=== PATIENT | female | born 1995 | race Caucasian/White ===

== ENCOUNTER 2023-10-18 15:44 | Emergency (ER) | payer OTHER, MEDICAID, SELFPAY ==
[2023-10-18 15:51] VITALS: BP 147/77; PULSE 101; RESP 18; TEMP 36.6; O2SAT 100
--- NOTE | 2023-10-18 17:40 | ED.EAR ---
HPI - Ear Problem General Chief complaint: Ear Stated complaint: ear pain and requesting covid test Time Seen by Provider: 10/18/23 16:57 Source: patient Mode of arrival: ambulatory Limitations: no limitations History of Present Illness HPI Narrative: Patient is a 28 y/o female who presents to the ED with report of L ear pain and drainage. Patient reports having pain in her left ear since yesterday. She noted having worsening pain and drainage from her left ear today. She went to [facility] and was told she had a viral infection. She took a COVID test at home which was positive. Patient wanting to be evaluated for ear. Denies fevers. Denies SOB/CP. Took Tylenol prior to arrival. Related Data Allergies Allergy/AdvReac Type Severity Reaction Status Date / Time No Known Allergies Allergy Verified 10/18/23 16:19 Review of Systems Review of Systems: CONSTITUTIONAL: Denies fever, chills, or sweats. ENT: See HPI. CARDIOVASCULAR: Denies chest pain RESPIRATORY: Denies cough or dyspnea. All systems reviewed & are unremarkable except as noted in HPI and below Exam Narrative: GENERAL: Well appearing, well-nourished, non-toxic, in no acute distress. ENT: Bilateral EAC mildly swollen and erythematous, worse on L. No drainage noted. Mild tenderness with palpation of left ear pinna, palpation of L tragus. TMs do not appear erythematous or bulging bilaterally. No tenderness with palpation of R ear. NECK: Supple. No adenopathy, no masses. RESPIRATORY: Airway patent, respirations nonlabored. Clear to auscultation bilaterally, no rales, rhonchi, wheezing. CARDIOVASCULAR: Regular rate and rhythm without murmurs, rubs, or gallops. Radial pulses 2+ and equal bilaterally. MUSCULOSKELETAL: Moves all extremities. No gross deformities. SKIN: Warm, dry, normal color. No rashes. NEURO: A&O X3. Speech clear. Cranial nerves II-XII grossly intact. Steady gait. No ataxic movements. PSYCHIATRIC: Appropriate mood and affect. Normal interaction. Course Vital Signs Vital signs: Vital Signs Temperature 97.9 F 10/18/23 15:51 Pulse Rate 101 H 10/18/23 15:51 Respiratory Rate 18 10/18/23 15:51 Blood Pressure 147/77 H 10/18/23 15:51 Pulse Oximetry 100 10/18/23 15:51 Oxygen Delivery Room Air 10/18/23 15:51 Temperature 97.9 F 10/18/23 15:51 Pulse Rate 101 H 10/18/23 15:51 Respiratory Rate 18 10/18/23 15:51 Blood Pressure 147/77 H 10/18/23 15:51 Pulse Oximetry 100 10/18/23 15:51 Oxygen Delivery Room Air 10/18/23 15:51 Medical Decision Making MDM Narrative Medical decision making narrative: Patient presented to ED with 2 day hx of L ear pain. Currently +COVID. VSS upon arrival. Exam concerning for potential left otitis externa. I did discuss w/ patient bacterial process vs viral syndrome causing ear drainage/congestion/pain. Will treat for potential bacterial process with ofloxacin ear drops, advised to utilize OTC decongestants/AHs. Tylenol/ibuprofen as needed for pain. Given return precautions. Discharged in stable condition. Medical Records Medical records reviewed: Yes I reviewed the external patient's medical records. Vital Signs Vital Signs: Vital Signs Temperature 97.9 F 10/18/23 15:51 Pulse Rate 101 H 10/18/23 15:51 Respiratory Rate 18 10/18/23 15:51 Blood Pressure 147/77 H 10/18/23 15:51 Pulse Oximetry 100 10/18/23 15:51 Oxygen Delivery Room Air 10/18/23 15:51 Temperature 97.9 F 10/18/23 15:51 Pulse Rate 101 H 10/18/23 15:51 Respiratory Rate 18 10/18/23 15:51 Blood Pressure 147/77 H 10/18/23 15:51 Pulse Oximetry 100 10/18/23 15:51 Oxygen Delivery Room Air 10/18/23 15:51 Discharge Plan Discharge Clinical Impression: COVID-19 Otitis externa Qualifiers: Otitis externa type: unspecified type Chronicity: acute Laterality: left Qualified Code(s): H60.502 - Unspecified acute noninfective otitis externa, left ear Patient Disposition: Home, Self-
== END 2023-10-18 18:16 | disposition home or self-care (01) ==
LOC: ANHED 17:55
PROVIDERS: Emergency Provider Physician Assistant; PCP Physician Assistant
DX: U07.1 COVID-19 (principal); H60.502 Unspecified acute noninfective otitis externa, left ear
CPT/HCPCS: 99283

== ENCOUNTER 2023-12-27 10:03 | Emergency (ER) | payer OTHER, SELFPAY ==
[2023-12-27 10:11] VITALS: BP 133/81; PULSE 100; RESP 16; TEMP 36.6; O2SAT 99
--- NOTE | 2023-12-27 10:18 | ED.URI ---
HPI - URI/Sore Throat General Chief Complaint: Upper Respiratory Infection Stated Complaint: flu like s/s Time Seen by Provider: 12/27/23 11:47 Source: patient Mode of arrival: ambulatory Limitations: no limitations History of Present Illness HPI Narrative: This is a 28-year-old female that presents to the emergency department for cold symptoms ongoing over the last 2 days. Reports chills, congestion, cough. Denies fever or shortness of breath. Related Data Allergies Allergy/AdvReac Type Severity Reaction Status Date / Time No Known Allergies Allergy Verified 12/27/23 10:14 Review of Systems Review of Systems: CONSTITUTIONAL: Denies fever ENT: Reports rhinorrhea, congestion. Denies sore throat RESPIRATORY: Reports cough. Denies dyspnea. All systems reviewed & are unremarkable except as noted in HPI and below PMFSH Past Medical History Medical History (Updated 12/27/23 @ 11:49 by Hawa Morales PA-C) No active medical problems Social History Social History (Updated 12/27/23 @ 10:19 by Hawa Morales PA-C) Smoking status: Never smoker Exam Narrative: GENERAL: Well-appearing, well-nourished, and in no acute distress. HEAD: Normocephalic, atraumatic. EYES: EOMI. ENT: Nares clear, no rhinorrhea or epistaxis. Mucous membranes moist. Oropharynx without tonsillar hypertrophy exudate or other lesions. Bilateral TMs pearly yanez non-bulging NECK: Supple. No adenopathy or masses. CHEST: Clear to auscultation. No respiratory distress. No wheezes rales or rhonchi HEART: Regular rate and rhythm. No murmur heard. Normal peripheral pulses. EXTREMITIES: Normal range of motion. No edema. SKIN: Warm, dry, no rash. NEURO: No focal deficits. Alert and oriented x3. PSYCH: Normal mood and affect Course Course Emergency Course: Patient updated on her workup and agrees with plan of care Vital Signs Vital signs: Vital Signs Temperature 98 F 12/27/23 10:11 Pulse Rate 100 12/27/23 10:11 Respiratory Rate 16 12/27/23 10:11 Blood Pressure 133/81 12/27/23 10:11 Pulse Oximetry 99 12/27/23 10:11 Oxygen Delivery Room Air 12/27/23 10:11 Temperature 98 F 12/27/23 10:11 Pulse Rate 100 12/27/23 10:11 Respiratory Rate 16 12/27/23 10:11 Blood Pressure 133/81 12/27/23 10:11 Pulse Oximetry 99 12/27/23 10:11 Oxygen Delivery Room Air 12/27/23 10:11 MDM - URI/Sore Throat MDM Narrative Medical decision making narrative: Patient presents the emergency department for cold symptoms ongoing over the last couple of days. She is afebrile and nontoxic appearing. Oxygen saturation is normal on room air. Lungs are clear on exam. Patient is influenza B positive. Will be started on Tamiflu. She is instructed on further care a viral infection. She is to follow up with her primary provider. She was given warnings to return to the ER Differential Diagnosis Differential diagnosis: Likely upper respiratory infection, sinusitis, viral infection, influenza and other (COVID, RSV) Lab Data Attestation: I reviewed the patient's lab results. Labs: Lab Results 12/27/23 Range/Units 10:17 Influenza A (RT-PCR) Negative (Negative) Influenza B (RT-PCR) Positive A (Negative) RSV (RT-PCR) Negative (Negative) SARS-CoV-2 RNA (RT-PCR) Negative (Negative) Critical Care Time Critical Care Time Critical Care Time: No Discharge Plan Discharge Clinical Impression: Influenza B Patient Disposition: Home, Self-Care Condition: Stable Instructions: Influenza (ED) Additional Instructions: Return to the emergency department for worsening symptoms, or any other concerns Remain well-hydrated, get plenty of rest. Take Tylenol or Motrin [id number] for pain as needed. Flonase for nasal congestion. Zyrtec for runny nose. Lozenges or Chloraseptic spray for sore throat. Follow up with your primary care doctor Prescriptions: New oseltamivir [Tamiflu] 75 mg ca
[2023-12-27 11:12] LABS: Influenza A QL RT-PCR Negative (Negative); Influenza B QL RT-PCR Positive (Negative); RSV RNA, RT-PCR Negative (Negative); SARS-CoV-2 RNA PCR Negative (Negative)
== END 2023-12-27 12:16 | disposition home or self-care (01) ==
LOC: ANHED 12:01
PROVIDERS: Emergency Provider Physician Assistant
DX: J10.1 Influenza due to other identified influenza virus with other respiratory manifestations (principal); Z20.822 Contact with and (suspected) exposure to COVID-19
CPT/HCPCS: 87637; 99283